=== PATIENT | female | born 1950 | race Caucasian/White ===

== ENCOUNTER → 2019-09-25 13:02 | Outpatient (BNVA) | payer MEDICARE, SELFPAY | PROVIDERS: Family Provider Family Medicine; PCP Family Medicine; Referring Provider Family Medicine; Visit Provider Family Medicine | DX: R05 Cough (principal); K44.9 Diaphragmatic hernia without obstruction or gangrene | CPT/HCPCS: 71046; 87804 ==

== ENCOUNTER 2020-02-16 19:56 | Emergency (ER) | payer MEDICARE, SELFPAY ==
[2020-02-16 20:14] VITALS: BP 131/64; PULSE 70; RESP 16; TEMP 36.7; O2SAT 94; BMI 26.9
--- NOTE | 2020-02-16 21:00 | ED_ITS ---
HPI - Abdominal Pain General: Chief Complaint: Abdominal Pain Stated Complaint: ruq abd pain radiates to back Time Seen by Provider: 02/16/20 20:58 History of Present Illness: HPI narrative: Patient is a 69-year-old female comes to the ED with epigastric pain. She has a past medical history of cholecystectomy, GERD and a hiatal hernia.. Patient says pain started about 3 weeks ago has progressed and gotten more severe. Pain is located in the epigastric region and in the right upper quadrant region. Patient also says that pain radiates to the middle of the back. Current pain is rated 9 out of 10. She has had nausea and approximately 2-3 episodes of emesis. Food and drink, especially meats make symptoms worse. Patient says she has been able to keep some foods down. Patient is also had some diarrhea as well over the past week. Patient says she takes omeprazole and has doubled her dose and also taken Tums to try to help with epigastric pain and nothing has helped. Patient also says she has had multiple episodes of liquid stool over the past several days. Patient also says she has been taking a lot of ibuprofen lately to help with pain. Denies any blood in the stool, blood in vomit, dysuria, hematuria, constipation, fevers and chest pain. Associated Symptoms: Reports bloating, diarrhea (Liquid watery stool), nausea and vomiting; Denies belching (Patient says she usually is able to belch and that brings her some relief but currently she can even belch), chills, constipation, dysuria, fever(s), hematochezia and hematuria Review of Systems Const: Reports: change in appetite (decrease); Denies: fever(s), chills or fatigue Eyes: Denies: change in vision or eye discomfort ENMT: Denies: throat pain, odynophagia, nasal discharge or nasal congestion Card: Denies: chest pain, palpitations, edema, swelling of feet/ankles, dyspnea on exertion or orthopnea Resp: Denies: dyspnea, productive cough or non-productive cough GI: Reports: abdominal pain, nausea, vomiting, diarrhea (Liquid watery stool) and bloating; Denies: constipation, belching (Patient says she usually is able to belch and that brings her some relief but currently she can even belch) or hematochezia : Denies: flank pain, dysuria or hematuria Musc: Denies: neck pain, back pain or extremity swelling Skin/Breast: Denies: rash or new lesions Neuro: Denies: headache(s), numbness in extremities or weakness in extremities PFSH ED PFSH: Family History Grandmother Breast cancer Paternal Skin cancer Paternal Heart disease Paternal Diabetes Paternal Grandfather No problems noted. Unknown No problems noted. Social History Smoking and tobacco status: never smoked Alcohol intake: never Female Reproductive History: Para: 3 Physical Exam Const: COMMON NORMALS: patient oriented x3 and alert GENERAL APPEARANCE: cooperative; not comfortable (uncomfortable and in pain) HENMT: COMMON NORMALS: normocephalic HEAD & SCALP: normocephalic MOUTH: Normal oral and palatal mucosa present THROAT: posterior oropharynx normal and uvula midline Eye: COMMON NORMALS: Equal, round and reactive pupils present PUPIL: Yes Equal, round and reactive pupils present Neck/C-Spine: COMMON NORMALS: supple GENERAL: Yes normal visual inspection Resp: COMMON NORMALS: normal respiratory effort, No retractions, No use of accessory muscles and clear to auscultation bilaterally AUSCULTATION: clear to auscultation bilaterally Cardio: COMMON NORMALS: regular rate, regular rhythm, S1 normal heart sound present, S2 normal heart sound present, No gallops present (Cardio), No clicks present (Cardio), No murmurs present (Cardio) and Peripheral pulses 2+ throughout RATE: regular rate RHYTHM: regular rhythm HEART SOUNDS: S1 normal heart sound present and S2 normal heart sound present PERIPHERAL PULSES: Peripheral pulses 2+ throughout GI: COMMON NORMALS: Normal to inspection, nondistended, normoactive bowel sounds present, Soft to palpation and no masses INSPECTION: Yes central obesity AUSCULTATION: Yes normoactive bowel sounds PALPATION: Yes Soft to palpation and Yes Tenderness to palpation present (GI) Details: RUQ and other (epigastric moderate tenderness) : COMMON NORMALS: Yes no CVA tenderness BLADDER/KIDNEY EXAM: Yes no CVA tenderness Back/Pelvis: COMMON NORMALS: no CVA tenderness Extremity: COMMON NORMALS: normal to inspection and no pedal edema Neuro: COMMON NORMALS: patient oriented x3 SENSORIUM/ORIENTATION: Yes alert GAIT: Yes Normal gait present Skin: COMMON NORMALS: no rashes or lesions noted GENERAL SKIN EXAM: no rashes or lesions noted and dry skin Course Reevaluation(s): Reevaluation #1: Patient's pain and nausea was controlled with meds while here in the ED. She stated she is feeling better and would like to go home and rest. Vital Signs: Vital signs: Vital Signs Temperature 98.0 F 02/16/20 20:14 Pulse Rate 74 02/17/20 03:07 Respiratory Rate 16 02/17/20 03:07 Blood Pressure 125/79 02/17/20 03:07 Pulse Oximetry 93 02/17/20 03:07 MDM - Abdominal Pain MDM Narrative: Medical decision making narrative: Patient is a 69-year-old female comes to the ED with epigastric pain nausea, vomiting and diarrhea. White blood cell count 15.3 and lipase 88, H. pylori is negative. CT of the abdomen shows Distended stomach and slightly distended proximal small bowel. The pattern suggests gastroenteritis or proximal ileus rather than mechanical obstruction. Patient was given IV antibiotics while here on the ED. I spoke with patient and told her the 2 options of treatment. I told her we can do an NG tube here in the ED and have her admitted or she could go home on some nausea meds, pain meds, antibiotics and a clear liquid diet for the next 48 hours, then advance as tolerated. Patient would like to go home and try the clear liquid diet. She is given prescriptions for nausea med, antibiotic and hydrocodone. I told her she could come back in to the ED if symptoms worsen after discharge. Patient understood and agreed with plan. Lab Data: Attestation: I reviewed the patient's lab results. Labs: Lab Results 02/16/20 02/16/20 02/16/20 Range/Units 21:20 21:20 21:20 WBC 15.3 H (4.0-10.0) 10^3/ uL RBC 4.59 (4.1-5.3) 10^6/u L Hgb 14.4 (11.5-15.3) g/dL Hct 43.1 (37.0-47.0) % MCV 93.9 (81-99) fL MCH 31.4 (28.0-34.0) pg MCHC 33.4 (30.0-36.0) g/dL RDW 12.7 (12.1-15.1) % Plt Count 338 (130-400) 10^3/c mm MPV 9.8 (7.4-10.4) fL Neut % (Auto) 73.5 % Lymph % (Auto) 15.2 % Collier % (Auto) 4.5 % Eos % (Auto) 6.1 % Baso % (Auto) 0.3 % Neut # (Auto) 11.3 H (1.8-7.7) 10^3/u L Lymph # (Auto) 2.3 (0.8-4.8) 10^3/u L Collier # (Auto) 0.7 (0.2-0.9) 10^3/u L Eos # (Auto) 0.9 H (0.0-0.8) 10^3/u L Baso # (Auto) 0.0 (0.0-0.1) 10^3/u L Nucleated RBC % (a uto) 0 % Nucleated RBCs # 0.0 /100WBC Sodium 140 (136-145) mmol/L Potassium 3.9 (3.5-5.1) mmol/L Chloride 104 (98-107) mmol/L Carbon Dioxide 24 (22-29) mmol/L Anion Gap 15.9 (5-19) BUN 21 (8-23) mg/dL Creatinine 0.8 (0.5-0.9) mg/dL GFR Calculation 71.1 L (90-130) mL/min Glucose 115 (65-115) mg/dL Calculated Osmolal ity 288 (285-295) mOsm/k g Calcium 8.9 (8.5-10.5) mg/dL Total Bilirubin 0.3 (0.15-1.2) mg/dL AST 61 H (0-32) U/L ALT 37 H (0-33) U/L Alkaline Phosphata se 144 H (35-105) IU/L Total Protein 6.1 L (6.6-8.7) g/dL Albumin 3.7 (3.5-5.2) g/dL Globulin 2.4 (1.3-4.6) g/dL Lipase 88 H (13-60) U/L H. pylori IgG Anti body Negative (Negative) Imaging Data ^: CT Abd/Pel: Attestation: I personally reviewed and interpreted this imaging study as follows: Radiologist's impression: [address] [address] [address] Scan Report Signed Patient: Diana Hines Unit #: [id number] : 1950 Age/Sex: 69 / F ADM Date: 02/16/20 Loc: ER Room/Bed: Attending Dr: Ordering Provider/Ordering MD: José Miguel Barrientos Date of Service: 02/16/20 Procedure(s): CT abdomen pelvis w con* [id number] Accession Number(s): [id number] Report Number: [id number] PROCEDURE INFORMATION: Exam: CT Abdomen And Pelvis With Contrast Exam date and time: 02/16/2020 10:19 PM Age: 69 years old Clinical indication: Abdominal pain; Prior surgery; Surgery date: 6+ months; Surgery type: Gb, bladder; Patient HX: C/O epigastric pain w n/v; Additional info: Abdom pain epigastric, ruq, n/v/d TECHNIQUE: Imaging protocol: Computed tomography of the abdomen and pelvis with intravenous contrast. Radiation optimization: All CT scans at this facility use at least one of these dose optimization techniques: automated exposure control; mA and/or kV adjustment per patient size (includes targeted exams where dose is matched to clinical indication); or iterative reconstruction. Contrast material: OMNI 300; Contrast volume: 95 ml; Contrast route: INTRAVENOUS (IV); COMPARISON: No relevant prior studies available. RADIATION DOSE METRICS: Total DLP (mGy-cm): 778.34 FINDINGS: Lungs: Bibasilar dependent atelectasis. Liver: Normal. No mass. Gallbladder and bile ducts: The gallbladder is surgically absent. Pancreas: Normal. No ductal dilation. Spleen: Normal. No splenomegaly. Adrenals: Normal. No mass. Kidneys and ureters: Normal. No hydronephrosis. Stomach and bowel: The stomach is distended with fluid with reflux into the esophagus. A 2 cm duodenal diverticulum is not inflamed. Scattered distal colonic diverticula are not inflamed. Slightly enlarged proximal small bowel without transition zone or wall thickening. Appendix: No evidence of appendicitis. Intraperitoneal space: Unremarkable. No free air. No significant fluid collection. Vasculature: Unremarkable. No abdominal aortic aneurysm. Lymph nodes: Unremarkable. No enlarged lymph nodes. Bladder: Unremarkable as visualized. Reproductive: The uterus is surgically absent. Bones/joints: There is a curvilinear scar like density in the right posterior pelvis extending towards the sacrum. No abnormal gas or fluid collection. Soft tissues: Unremarkable. CT/CT abdomen pelvis w con* [id number] IMPRESSION: 1. Distended stomach and slightly distended proximal small bowel. The pattern suggests gastroenteritis or proximal ileus rather than mechanical obstruction. 2. Colonic diverticulosis. 3. Other chronic and incidental findings as described. Radiation Dose CTDIVOL = (mGy): DLP = 778.34 (mGy-cm) Dictated By: Morales Thompson MD Signed By: Morales Thompson MD Signed Date/Time: 02/16/202351 DD/ 50 Discharge Plan Discharge Patient Disposition: Home, Self-Care Clinical Impression: Gastroenteritis Condition: Stable Prescriptions: New metoclopramide HCl 10 mg tablet 10 mg PO Q6H PRN (Reason: nausea and vomiting) Qty: 30 RF: 0 cefixime 400 mg capsule 400 mg PO BID 5 Days Qty: 10 RF: 0 No Action omeprazole 20 mg tablet,delayed release (DR/EC) 20 mg PO BID RF: 0 naproxen [Naprosyn] 500 mg tablet 500 mg PO BID PRNRF: 0 docusate sodium [Colace] 100 mg capsule 100 mg PO DAILY RF: 0 psyllium husk [Daily Fiber] 0.52 gram capsule 1.04 gm PO DAILY RF: 0 calcium carbonate 500 mg calcium (1,250 mg) tablet,chewable 500 mg PO TID PRNRF: 0 Adult 50 Plus Probiotic 4 billion cell capsule 4,000 mmu cells PO DAILY RF: 0 vitamin A palmitate 10,000 unit capsule PO DAILY RF: 0 thiamine HCl (vitamin B1) [Vitamin B-1] 250 mg tablet 250 mg PO DAILY RF: 0 ascorbate calcium (vitamin C) 500 mg tablet 1 gm PO DAILY RF: 0 glucosamine-chondroitin 750-600 mg tablet,chewable 1 tab PO BID RF: 0 vitamin E acetate 200 unit capsule PO RF: 0 omega-3 fatty acids 1,000 mg capsule 1,000 mg PO BID RF: 0 guaifenesin [Mucus Relief] 200 mg tablet 400 mg PO Q4H PRNRF: 0 Sinus Congestion-Pain(guaif) 5-325-200 mg tablet 2 tab PO Q6H PRNRF: 0 multivitamin Capsule 1 cap PO QAM RF: 0 dkqhgnjfo-YA-FK-acetaminophen Capsule PO PRNRF: 0 cholecalciferol (vitamin D3) 125 mcg (5,000 unit) capsule 5,000 unit PO DAILY RF: 0 ferrous sulfate [iron] 325 mg (65 mg iron) tablet 325 mg PO QDAY RF: 0 albuterol sulfate 2.5 mg /3 mL (0.083 %) solution for nebulization 2.5 mg INHALATION Q6H PRN (Reason: shortness of breath or wheezing) Qty: 75 RF: 0 albuterol sulfate 90 mcg/actuation HFA aerosol inhaler 1 inh INHALATION QID PRN (Reason: shortness of breath or wheezing) Qty: 18 RF: 0 sodium chloride [[place] Nasal] 0.65 % aerosol,spray 1 spray INTRANASAL BID PRN (Reason: dry nasal passages) Qty: 60 RF: 0 fluticasone propionate [Flonase Allergy Relief] 50 mcg/actuation spray,suspension 1 spray INTRANASAL BID Qty: 36.4 RF: 0 oxybutynin chloride 15 mg tablet extended release 24hr 15 mg PO DAILY 30 Days Qty: 30 RF: 8 Discharge Orders: Discharge Order (Routine); Ordered 02/17/20 Ordered By: José Miguel Barrientos Discharge Diet: Advance as tolerated and Clear Liquid Discharge Activity: Increase activity as tolerated Patient Instructions: Full Liquid Diet, Clear Liquid Diet (ED), Gastroenteritis (ED) Activity Restrictions/Additional Instructions: Contact your PCP and schedule an appointment for reevaluation in the next 7 to 10 days. Clear liquid diet only for the next 48 hours then after that you can slowly advance as tolerated. Take the prescribed metoclopramide for nausea. Take full course of antibiotic as prescribed. I am also sending you home with a written prescription for hydrocodone for pain. Continue all other home meds. Remember you can return to ED for reevaluation if symptoms worsen. Discharge Date/Time: 02/17/20 03:24 Coding Level of Care Code ED Manager Mental Health for [facility] Fwd Exam Comprehensive
[2020-02-16 21:31] LABS: Basophils % 0.3 %; Eosinophils # 0.9 10^3/uL (0.0-0.8); Eosinophils % 6.1 %; Hematocrit 43.1 % (37.0-47.0); Hemoglobin 14.4 g/dL (11.5-15.3); Lymphocytes # 2.3 10^3/uL (0.8-4.8); Lymphocytes % 15.2 %; Mean Corpuscular HGB Conc 33.4 g/dL (30.0-36.0); Mean Corpuscular Hemoglobin 31.4 pg (28.0-34.0); Mean Corpuscular Volume 93.9 fL (81-99); Mean Platelet Volume 9.8 fL (7.4-10.4); Monocytes # 0.7 10^3/uL (0.2-0.9); Monocytes % 4.5 %; Neutrophils # 11.3 10^3/uL (1.8-7.7); Neutrophils % 73.5 %; Nucleated Red Blood Cells % 0 %; Platelet Count 338 10^3/cmm (130-400); Red Blood Count 4.59 10^6/uL (4.1-5.3); Red Cell Distribution Width 12.7 % (12.1-15.1); White Blood Count 15.3 10^3/uL (4.0-10.0)
[2020-02-16 21:46] LABS: Alanine Aminotransferase 37 U/L (0-33); Albumin Level 3.7 g/dL (3.5-5.2); Alkaline Phosphatase 144 IU/L (35-105); Anion Gap 15.9 (5-19); Aspartate Amino Transferase 61 U/L (0-32); Blood Urea Nitrogen 21 mg/dL (8-23); Calcium 8.9 mg/dL (8.5-10.5); Carbon Dioxide 24 mmol/L (22-29); Chloride 104 mmol/L (98-107); Globulin 2.4 g/dL (1.3-4.6); Glomerular Filtration Rate 71.1 mL/min (90-130); Glucose 115 mg/dL (65-115); Lipase 88 U/L (13-60); Osmolality Calculated 288 mOsm/kg (285-295); Potassium 3.9 mmol/L (3.5-5.1); Sodium 140 mmol/L (136-145); Total Bilirubin 0.3 mg/dL (0.15-1.2); Total Protein 6.1 g/dL (6.6-8.7)
--- NOTE | 2020-02-16 21:54 | CTR_ITS ---
PROCEDURE INFORMATION: Exam: CT Abdomen And Pelvis With Contrast Exam date and time: 02/16/2020 10:19 PM Age: 69 years old Clinical indication: Abdominal pain; Prior surgery; Surgery date: 6+ months; Surgery type: Gb, bladder; Patient HX: C/O epigastric pain w n/v; Additional info: Abdom pain epigastric, ruq, n/v/d TECHNIQUE: Imaging protocol: Computed tomography of the abdomen and pelvis with intravenous contrast. Radiation optimization: All CT scans at this facility use at least one of these dose optimization techniques: automated exposure control; mA and/or kV adjustment per patient size (includes targeted exams where dose is matched to clinical indication); or iterative reconstruction. Contrast material: OMNI 300; Contrast volume: 95 ml; Contrast route: INTRAVENOUS (IV); COMPARISON: No relevant prior studies available. RADIATION DOSE METRICS: Total DLP (mGy-cm): 778.34 FINDINGS: Lungs: Bibasilar dependent atelectasis. Liver: Normal. No mass. Gallbladder and bile ducts: The gallbladder is surgically absent. Pancreas: Normal. No ductal dilation. Spleen: Normal. No splenomegaly. Adrenals: Normal. No mass. Kidneys and ureters: Normal. No hydronephrosis. Stomach and bowel: The stomach is distended with fluid with reflux into the esophagus. A 2 cm duodenal diverticulum is not inflamed. Scattered distal colonic diverticula are not inflamed. Slightly enlarged proximal small bowel without transition zone or wall thickening. Appendix: No evidence of appendicitis. Intraperitoneal space: Unremarkable. No free air. No significant fluid collection. Vasculature: Unremarkable. No abdominal aortic aneurysm. Lymph nodes: Unremarkable. No enlarged lymph nodes. Bladder: Unremarkable as visualized. Reproductive: The uterus is surgically absent. Bones/joints: There is a curvilinear scar like density in the right posterior pelvis extending towards the sacrum. No abnormal gas or fluid collection. Soft tissues: Unremarkable. CT/CT abdomen pelvis w con* [id number] IMPRESSION: 1. Distended stomach and slightly distended proximal small bowel. The pattern suggests gastroenteritis or proximal ileus rather than mechanical obstruction. 2. Colonic diverticulosis. 3. Other chronic and incidental findings as described. Radiation Dose CTDIVOL = (mGy): DLP = 778.34 (mGy-cm)
[2020-02-16 22:19] LABS: H. Pylori IgG Antibody Negative (Negative)
[2020-02-16 22:28] VITALS: RESP 16
[2020-02-16] MEDS: ondansetron 2 mg/ML SDV 2 mL 4 MG IVP (22:28)
[2020-02-16] MEDS: morphine 4 mg/mL SDV 1 mL IVP (22:28)
[2020-02-16] MEDS: diphenhydrAMINE 50 mg/mL SDV 1mL 25 MG IVP (22:38)
[2020-02-16 22:45] VITALS: BP 111/64; PULSE 73; RESP 16; O2SAT 88
--- NOTE | 2020-02-16 22:50 | PC.NURSE ---
after giving the pt. 4mg of zofran, she suddenly c/o a sever headach and i found she had re streaks going up her arm where the med had been but in the IV. the PA was informed and orders were received for Benadryl
[2020-02-16] MEDS: iohexol 300 mg/mL 100 mL Btl IV (23:26)
[2020-02-17] MEDS: ciprofloxacin 200 MG/100 ML PREMIX 100 MG IV (01:19)
[2020-02-17] MEDS: metroNIDAZOLE IV 500 MG/100 ML PREMIX 100 MG IV (01:51)
[2020-02-17 02:05] VITALS: BP 116/59; PULSE 78; RESP 19; O2SAT 100
[2020-02-17 02:54] VITALS: RESP 18
[2020-02-17] MEDS: morphine 4 mg/mL SDV 1 mL IVP (02:54)
[2020-02-17] MEDS: metoclopramide 5 mg/mL SDV 2 mL 10 MG IVP (02:54)
[2020-02-17 03:07] VITALS: BP 125/79; PULSE 74; RESP 16; O2SAT 93
== END 2020-02-17 03:24 | disposition home or self-care (01) ==
PROVIDERS: Emergency Provider Physician Assistant
DX: K52.9 Noninfective gastroenteritis and colitis, unspecified (principal)
CPT/HCPCS: 12345; 74177; 80053; 83690; 85025; 86677; 96365; 96367; 96375; 96376; 99283; J0744; J1200; J2270; J2405; J2765; J7030; Q9967; S0030

== ENCOUNTER → 2020-04-07 09:20 | Outpatient (BNVA) | payer MEDICARE, SELFPAY | PROVIDERS: Visit Provider Family Medicine | DX: Z13.6 Encounter for screening for cardiovascular disorders (principal); K21.9 Gastro-esophageal reflux disease without esophagitis | CPT/HCPCS: 80053; 80061; 85025 ==

== ENCOUNTER 2020-04-15 08:31 | Day surgery (SDC) | payer MEDICARE, SELFPAY ==
[2020-04-13 12:13] VITALS: BMI 27.1
[2020-04-15] MEDS: sodium chloride 0.9% 1,000 ML 30 ML IV (09:10)
--- NOTE | 2020-04-15 09:18 | ANES.PREANE2 ---
Pre-Anesthetic Assessment Pre-Anesthetic Assessment: Height/Weight: Height 1.57 m Weight 67.132 kg Preop Diagnosis: Screening colonoscopy Proposed Procedure: Operation Date: 04/15/20 09:15 Proposed Procedures p Colonoscopy 10219 Z12.11(Not Applicable) - Tato Nettles MD Was Beta Christie taken within 24 hours: N/A Last intake: Intake Last Liquid Date 04/14/20 Last Liquid Time 20:00 Last Solid Date 04/13/20 Last Solid Time 18:00 Last Intake: 20:00 Social: Social History: No alcohol and No tobacco Exam: Pre-Anes Outpt Exam: alert, oriented x 3, clear to auscultation bilaterally and regular rate & rhythm Airway: Submandibular: WNL Cervical ROM: WNL MP: 2 Dentition: Full Pulmonary: Pulmonary: COPD, Cough and BRADLEY CV/HEM: CV/HEM: Anemia : : None reported Hepatic: Hepatic: None reported GI: GI: GERD and Hiatus hernia Metabolic: Metabolic: None reported Musc/skel: Musc/skel: None reported Neuropsych: Neuropsych: None reported Anesthetic Plan: ASA status: 2 Anesthesia: Anesthesia Evaluation and MAC Risk of > 500 ml blood loss (7ml/kg in children): No PFSH Anesthesia PFSH: Medical History (Updated 04/07/20 @ 09:04 by Valeri Cerrato DO) GERD (gastroesophageal reflux disease) Incontinence in female POP-Q stage 2 cystocele Patient was counseled again regarding cystocele. A cystocele, also called a prolapsed bladder, is when your bladder shifts and pushes on the outside wall of your vagina. This happens when the muscles between your bladder and vagina weaken and loosen. A cystocele can be caused by: Aging, Vaginal deliveries of heavy babies, Menopause, Obesity, Frequent straining during bowel movements, Heavy lifting, a hysterectomy or other gynecologic surgery. In her case this most likely recurred due to heavy lifting. Urgency of micturition Patient was counseled regarding overactive bladder, and to initially rule out UTI. She was referred to pelvic floor therapy for pelvic floor muscle exercises, she was also counseled regarding all her conservative medical management measures like weight loss, scheduled trips to the toilet, bladder training, wearing pads. She was also counseled regarding medication trial with oxybutynin was prescribed. Follow-up in one month. Vaginal atrophy Surgical History History of bladder surgery 09/19/18--Bladder sling placed History of cholecystectomy History of hysterectomy 09/19/18 Family History Grandmother Breast cancer Paternal Skin cancer Paternal Heart disease Paternal Diabetes Paternal Grandfather No problems noted. Unknown No problems noted. Social History Smoking and tobacco status: never smoked Alcohol intake: never Female Reproductive History: Para: 3 Data Anesthesia Cardiac Studies: No Data to Display
--- NOTE | 2020-04-15 09:27 | W.PM.OPSUD ---
Surgery/Procedure H&P Update DATE OF PROCEDURE: April 15, 2020 DATE H&P PERFORMED: 03/19/20 H&P UPDATE INFORMATION: I have reviewed H&P completed within last 30 days, I have examined patient prior to procedure and No changes to prior documentation PREOP DIAGNOSIS: Screening colonoscopy PRIMARY INDICATION FOR PROCEDURE: The same PLANNED PROCEDURE: Operation Date: 04/15/20 09:15 Proposed Procedures p Colonoscopy 15044 Z12.11(Not Applicable) - Tato Nettles MD
[2020-04-15 10:06] VITALS: BP 109/60; PULSE 62; RESP 18; TEMP 36.1; O2SAT 98
--- NOTE | 2020-04-15 10:11 | ANE.PACU2 ---
Inpatient post-anesthesia follow up: Airway intact: Yes Vital signs: Temperature Pulse Rate Respiratory Rate Blood Pressure Pulse Oximetry Oxygen Delivery Me thod Oxygen Flow Rate Fraction of Inspir ed Oxygen Hydration adequate: Yes Nausea and vomiting: No Pain level: 1 Mental status: Baseline
--- NOTE | 2020-04-15 10:13 | FL_ITS ---
WS: [id number] EXAM: SINGLE COLUMN BARIUM ENEMA DATE OF EXAMINATION: 04/15/2020, 1057 hours COMPARISON: None. HISTORY: Patient is 69 years old with incomplete colonoscopy. Patient with upper abdominal and sternal pain. FINDINGS: Gang Drill Operator radiograph shows an extensive amount of air throughout the colon correlating with recent colono scopy. Single column barium minimal was performed in routine fashion. Few scattered diverticuli are s een in the sigmoid colon region. The remainder of the colon is otherwise unremarkable. The cecum appe ars to be on a lax mesentery and is located actually within the mid abdomen. Air and barium extend re trograde into decompressed normal-appearing distal small bowel. No stricture or mass lesion is seen. Postevacuation imaging shows a fairly extensive amount of residual barium. No stricture, obstruction or mass lesion identified. FL/FL barium enema [id number] IMPRESSION: Mild sigmoid colon diverticulosis. No findings of diverticulitis. Remainder of the colon evaluation is otherwise unremarkable.
[2020-04-15 10:25] VITALS: BP 98/61; PULSE 64; RESP 18; O2SAT 100
== END 2020-04-15 10:37 | disposition home or self-care (01) ==
PROVIDERS: PCP Family Medicine; Visit Provider Surgery
PROC: 0DJD8ZZ Inspection of Lower Intestinal Tract, Via Natural or Artificial Opening Endoscopic (ICD-10-PCS; CPT 45378; principal; 2020-04-15 09:15)
DX: Z12.11 Encounter for screening for malignant neoplasm of colon (principal); K57.30 Diverticulosis of large intestine without perforation or abscess without bleeding; J44.9 Chronic obstructive pulmonary disease, unspecified; D64.9 Anemia, unspecified
CPT/HCPCS: 12345; 45330; 74270; J2704; J7030

== ENCOUNTER 2020-05-14 08:59 | Outpatient (CLI) | payer MEDICARE, SELFPAY ==
--- NOTE | 2020-05-14 09:15 | FL_ITS ---
WS: [id number] UPPER GI WITH SMALL BOWEL FOLLOW-THROUGH HISTORY: R10.13 Epigastric pain COMPARISON: 01/15/2019 FLUOROSCOPIC TIME: 4.1 minutes. Double contrast upper GI examination was performed. Patient swallowed the barium mixture without difficulty. Large hiatal hernia was intermittently visualized on this examination. There is also delayed emptying of the esophagus due to mild tertiary contractions. Marked tortuosity and dilatation of the esophagu s. Gastroesophageal reflux was noted to the level just above the yenni. No ulcer. Small bowel follow-through. Barium transited the small bowel at minutes. No small bowel strictures or dilatation. No mass or obst ruction. Two adjacent diverticulum noted in the third portion of the duodenum. Normal appearance of t he right lower quadrant. Prior cholecystectomy. Mild LEFT convex curvature lumbar spine with osteopenia. FL/FL upperGI air smallbowel ser* IMPRESSION: 1. Large intermittent hiatal hernia. 2. Gastroesophageal reflux to the level of the yenni. 3. Duodenal diverticula. 4. Dilated tortuous esophagus with dysmotility. 5. Unremarkable small bowel follow-through.
== END 2020-05-14 09:00 | disposition home or self-care (01) ==
LOC: RAD 09:05
PROVIDERS: PCP Family Medicine; Visit Provider Surgery
DX: R10.13 Epigastric pain (principal); K44.9 Diaphragmatic hernia without obstruction or gangrene; K21.9 Gastro-esophageal reflux disease without esophagitis; K57.10 Diverticulosis of small intestine without perforation or abscess without bleeding
CPT/HCPCS: 74246; 74248

== ENCOUNTER → 2021-05-13 10:00 | Outpatient (BNVA) | payer MEDICARE, SELFPAY | PROVIDERS: PCP Family Medicine; Visit Provider Family Medicine | DX: Z13.6 Encounter for screening for cardiovascular disorders (principal); K21.9 Gastro-esophageal reflux disease without esophagitis | CPT/HCPCS: 85025 ==

== ENCOUNTER → 2021-05-19 11:07 | Outpatient (BNVA) | payer MEDICARE, SELFPAY | PROVIDERS: PCP Family Medicine; Visit Provider Family Medicine | DX: Z13.6 Encounter for screening for cardiovascular disorders (principal) | CPT/HCPCS: 80053; 80061; 85025 ==

== ENCOUNTER 2021-05-31 14:20 | Outpatient (CLI) | payer MEDICARE, SELFPAY ==
--- NOTE | 2021-05-31 14:30 | MM_ITS ---
WS: [id number] BILATERAL SCREENING DIGITAL MAMMOGRAM WITH CAD HISTORY: screening mammogram COMPARISON: 08/11/2016 and 07/27/2007 Bilateral CC and MLO views submitted. Computer aided detection analyzed. Breast composition: There are scattered areas of fibroglandular density. No suspicious masses, microc alcifications or architectural distortion. Focal area of asymmetry in the upper outer quadrant of the RIGHT breast has been stable over multiple prior examinations. MM/[place] [id number] IMPRESSION: BI-RADS: 2-Benign FOLLOW UP: 1 Year Follow-up
== END 2021-05-31 14:21 | disposition home or self-care (01) ==
LOC: RADSHAW 14:26
PROVIDERS: PCP Family Medicine; Visit Provider Family Medicine
DX: Z12.31 Encounter for screening mammogram for malignant neoplasm of breast (principal)
CPT/HCPCS: 77067

== ENCOUNTER → 2021-12-27 14:57 | Outpatient (BNVA) | payer MEDICARE, SELFPAY | PROVIDERS: PCP Family Medicine; Visit Provider Family Medicine | DX: R53.83 Other fatigue (principal) | CPT/HCPCS: 82607; 84443; 85025 ==

== ENCOUNTER 2022-08-17 22:52 | Emergency (ER) | payer MEDICARE, SELFPAY ==
[2022-08-17 23:01] VITALS: BP 153/90; PULSE 77; RESP 20; TEMP 36.8; O2SAT 95; BMI 27.4
--- NOTE | 2022-08-17 23:11 | W.ED.NAVMDI ---
HPI - Nausea/Vomiting/Diarrhea General: Chief complaint: Nausea/Vomiting/Diarrhea Stated complaint: Headache\V\ABD Pain\ Time Seen by Provider: 08/17/22 22:56 Source: patient Mode of arrival: ambulatory Limitations: no limitations History of Present Illness: 72-year-old female who states that over the last day patient has been having nausea vomiting diarrhea along with abdominal cramping. She states she had multiple episodes of vomiting not been able to tolerate any p.o. and feels dehydrated. She had a mild headache after vomiting as well. Denies any chest pain denies any fevers denies any known sick contacts. Associated nausea: Yes Associated symtoms: Reports nausea; Denies chest pain, dysuria or headache(s) Review of Systems Const: Denies: fever(s), chills, body aches or change in appetite Eyes: Denies: blurry vision or eye discomfort ENMT: Denies: throat pain or dental pain Card: Denies: chest pain Resp: Denies: dyspnea GI: Reports: abdominal pain, nausea and vomiting; Denies: diarrhea : Denies: dysuria Musc: Denies: neck pain or back pain Skin/Breast: Denies: rash Neuro: Denies: headache(s) Psych: Denies: depression Alexandre/Lymph: Denies: easy bruising All/Imm: Denies: urticaria PFSH ED PFSH: Medical History GERD (gastroesophageal reflux disease) Incontinence in female POP-Q stage 2 cystocele Patient was counseled again regarding cystocele. A cystocele, also called a prolapsed bladder, is when your bladder shifts and pushes on the outside wall of your vagina. This happens when the muscles between your bladder and vagina weaken and loosen. A cystocele can be caused by: Aging, Vaginal deliveries of heavy babies, Menopause, Obesity, Frequent straining during bowel movements, Heavy lifting, a hysterectomy or other gynecologic surgery. In her case this most likely recurred due to heavy lifting. Urgency of micturition Patient was counseled regarding overactive bladder, and to initially rule out UTI. She was referred to pelvic floor therapy for pelvic floor muscle exercises, she was also counseled regarding all her conservative medical management measures like weight loss, scheduled trips to the toilet, bladder training, wearing pads. She was also counseled regarding medication trial with oxybutynin was prescribed. Follow-up in one month. Vaginal atrophy Surgical History History of bladder surgery 09/19/18--Bladder sling placed History of cholecystectomy History of hysterectomy 09/19/18 Hx of cataract surgery Family History Grandmother Breast cancer, Onset Age: 86 Paternal Skin cancer Paternal Heart disease Paternal Diabetes Paternal Grandfather No problems noted. Unknown No problems noted. Brother Heart disease Denies family history of Colon cancer Ovarian cancer Clotting disorder Hyperlipidemia Anesthesia complication Bleeding disorder Hypertension Uterine cancer Stroke Social History Smoking and tobacco status: never smoked Alcohol intake: never Female Reproductive History: Para: 3 Physical Exam Const: COMMON NORMALS: no acute distress, patient oriented x3 and healthy appearing HENMT: COMMON NORMALS: normocephalic and atraumatic HEAD & SCALP: normocephalic and atraumatic Eye: COMMON NORMALS: Equal, round and reactive pupils present and EOMs intact bilaterally PUPIL: Yes Equal, round and reactive pupils present Neck/C-Spine: COMMON NORMALS: full ROM and supple Chest: COMMONS NORMALS: normal inspection of the chest and normal palpation of entire chest wall Resp: COMMON NORMALS: normal respiratory effort, No retractions, No use of accessory muscles and clear to auscultation bilaterally AUSCULTATION: clear to auscultation bilaterally Cardio: COMMON NORMALS: regular rate, regular rhythm and No murmurs present (Cardio) RATE: regular rate RHYTHM: regular rhythm GI: COMMON NORMALS: Normal to inspection, nondistended, normoactive bowel sounds present, Soft to palpation, non-tender and no masses PALPATION: Yes Soft to palpation Extremity: COMMON NORMALS: normal to inspection and full ROM Neuro: COMMON NORMALS: patient oriented x3, moves all extremities and no focal motor deficits Psych: COMMON NORMALS: mental status grossly normal, Normal thought process present and cooperative THOUGHT PROCESS: Normal thought process present Skin: COMMON NORMALS: no rashes or lesions noted and no wounds GENERAL SKIN EXAM: no rashes or lesions noted Course Vital Signs: Vital signs: Vital Signs Temperature 98.2 F 08/17/22 23:01 Pulse Rate 77 08/17/22 23:01 Respiratory Rate 18 08/18/22 00:03 Blood Pressure 153/90 08/17/22 23:01 Pulse Oximetry 95 08/17/22 23:01 Oxygen Delivery Me thod 08/17/22 23:01 MDM - Nausea/Vomiting/Diarrhea Medical Decision Making Patient presents with nausea vomiting diarrhea is likely viral in origin she feels much improved after Phenergan she is able tolerate p.o. blood works normal she is stable for discharge she is to follow-up with PCP and return if worsening. Lab Data 08/17/22 23:00 08/17/22 23:00 Laboratory Results WBC 3.9 10^3/uL (4.0-10.0) L 08/17/22 23:00 RBC 4.63 10^6/uL (4.1-5.3) 08/17/22 23:00 Hgb 14.5 g/dL (11.5-15.3) 08/17/22 23:00 Hct 43.2 % (37.0-47.0) 08/17/22 23:00 MCV 93.3 fl (81-99) 08/17/22 23:00 MCH 31.3 pg (28.0-34.0) 08/17/22 23:00 MCHC 33.6 g/dL (30.0-36.0) 08/17/22 23:00 RDW 13.0 % (12.1-15.1) 08/17/22 23:00 Plt Count 260 10^3/cmm (130-400) 08/17/22 23:00 MPV 10.2 fL (7.4-10.4) 08/17/22 23:00 Neut % (Auto) 72.0 % 08/17/22 23:00 Lymph % (Auto) 15.6 % 08/17/22 23:00 [place] % (Auto) 9.1 % 08/17/22 23:00 Eos % (Auto) 0.0 % 08/17/22 23:00 Baso % (Auto) 1.0 % 08/17/22 23:00 Neut # (Auto) 2.77 10^3/uL (1.8-7.7) 08/17/22 23:00 Lymph # (Auto) 0.6 10^3/uL (0.8-4.8) L 08/17/22 23:00 [place] # (Auto) 0.4 10^3/uL (0.2-0.9) 08/17/22 23:00 Eos # (Auto) 0.0 10^3/uL (0.0-0.8) 08/17/22 23:00 Baso # (Auto) 0.0 10^3/uL (0.0-0.1) 08/17/22 23:00 Nucleated RBC % (auto) 0 % 08/17/22 23:00 Nucleated RBCs # 0.0 /100WBC 08/17/22 23:00 Sodium 137 mmol/L (136-145) 08/17/22 23:00 Potassium 3.9 mmol/L (3.5-5.1) 08/17/22 23:00 Chloride 104 mmol/L (98-107) 08/17/22 23:00 Carbon Dioxide 21 mmol/L (22-29) L 08/17/22 23:00 Anion Gap 15.9 (5-19) 08/17/22 23:00 BUN 6 mg/dL (8-23) L 08/17/22 23:00 Creatinine 0.7 mg/dL (0.5-0.9) 08/17/22 23:00 GFR Calculation Not Reportable 08/17/22 23:00 Glucose 117 mg/dL (65-115) H 08/17/22 23:00 Calculated Osmolality 283 mOsm/kg (285-295) L 08/17/22 23:00 Calcium 9.3 mg/dL (8.5-10.5) 08/17/22 23:00 Total Bilirubin 0.4 mg/dL (0.15-1.2) 08/17/22 23:00 AST 30 U/L (0-32) 08/17/22 23:00 ALT 37 U/L (0-33) H 08/17/22 23:00 Alkaline Phosphatase 127 U/L (35-105) H 08/17/22 23:00 Total Protein 6.9 g/dL (6.6-8.7) 08/17/22 23:00 Albumin 3.9 g/dL (3.5-5.2) 08/17/22 23:00 Globulin 3.0 g/dL (1.3-4.6) 08/17/22 23:00 Lipase 22 U/L (13-60) 08/17/22 23:00 Influenza Type A Ag negative (Negative) 08/18/22 00:09 Influenza Type B Ag negative (Negative) 08/18/22 00:09 Discharge Plan Discharge Patient Disposition: Home Clinical Impression: Vomiting Condition: Stable Prescriptions: New promethazine 12.5 mg tablet 12.5 mg PO Q6H PRN (Reason: nausea and vomiting) Qty: 14 0RF Rx Instructions: 3 doses during day; last dose no later than 4 hr before bedtime No Action docusate sodium [Colace] 100 mg capsule 100 mg PO DAILY psyllium husk [Daily Fiber] 0.52 gram capsule 1.04 gm PO DAILY Adult 50 Plus Probiotic 4 billion cell capsule 4,000 mmu cells PO DAILY thiamine HCl (vitamin B1) [Vitamin B-1] 250 mg tablet 250 mg PO DAILY vitamin E acetate 200 unit capsule 1 unit PO DAILY guaifenesin [Mucus Relief] 200 mg tablet 400 mg PO Q4H PRN (Reason: Congestion) calcium carbonate 500 mg calcium (1,250 mg) tablet,chewable 500 mg PO DAILY PRN (Reason: congestion) glucosamine-chondroitin 750-600 mg tablet,chewable 1 tab PO DAILY elderberry fruit 200 mg capsule PO coenzyme Q10 [Co Q-10] 10 mg capsule 10 mg PO DAILY sodium chloride [[place] Nasal] 0.65 % aerosol,spray 1 spray INTRANASAL BID PRN (Reason: dry nasal passages) Qty: 60 0RF albuterol sulfate 90 mcg/actuation HFA aerosol inhaler 1 inh INHALATION QID PRN (Reason: shortness of breath or wheezing) Qty: 18 0RF Rx Instructions: please run through 340b lansoprazole 15 mg capsule,delayed release(DR/EC) 15 mg PO .at bedtime Mucinex 1,200 mg tablet extended release 12hr 1,200 mg PO BID Qty: 20 0RF albuterol sulfate 2.5 mg /3 mL (0.083 %) solution for nebulization 2.5 mg INHALATION Q6H PRN (Reason: shortness of breath or wheezing) Qty: 180 1RF fluticasone propion-salmeterol [Advair Diskus] 250-50 mcg/dose blister with device 1 inh inhalation Q12H Qty: 60 5RF fluticasone propionate [Flonase Allergy Relief] 50 mcg/actuation spray,suspension 1 spray INTRANASAL BID Qty: 15.8 5RF Rx Instructions: administer into each nostril benzonatate 100 mg capsule See Rx Instructions .ROUTE .COMPLEX Qty: 30 0RF Dose Instruction: Take 1 capsule by mouth three times daily as needed for cough Rx Instructions: Take 1 capsule by mouth three times daily as needed for cough omeprazole 20 mg capsule,delayed release(DR/EC) 20 mg PO QAM 90 Days Qty: 90 0RF oxybutynin chloride 15 mg tablet extended release 24hr 15 mg PO DAILY 90 Days Qty: 90 2RF metoclopramide HCl 10 mg tablet 10 mg PO Q6H PRN (Reason: nausea and vomiting) Qty: 30 0RF Discharge Orders: Discharge ED (Routine); Ordered 08/18/22 Ordered By: Masoud Salas Referrals: Valeri Cerrato DO [Primary Care Provider] - 1-3 days Discharge Diet: Advance as tolerated Discharge Activity: Resume usual activity Patient Instructions: Acute Nausea and Vomiting (ED) Coding Level of Care Code ED [employer] for Chg Fwd Exam Comprehensive
[2022-08-17 23:15] LABS: Hematocrit 43.2 % (37.0-47.0); Hemoglobin 14.5 g/dL (11.5-15.3); Lymphocytes # 0.6 10^3/uL (0.8-4.8); Lymphocytes % 15.6 %; Mean Corpuscular HGB Conc 33.6 g/dL (30.0-36.0); Mean Corpuscular Hemoglobin 31.3 pg (28.0-34.0); Mean Corpuscular Volume 93.3 fl (81-99); Mean Platelet Volume 10.2 fL (7.4-10.4); Monocytes # 0.4 10^3/uL (0.2-0.9); Monocytes % 9.1 %; Neutrophils # 2.77 10^3/uL (1.8-7.7); Nucleated Red Blood Cells % 0 %; Platelet Count 260 10^3/cmm (130-400); Red Blood Count 4.63 10^6/uL (4.1-5.3); White Blood Count 3.9 10^3/uL (4.0-10.0)
[2022-08-17 23:35] LABS: Alanine Aminotransferase 37 U/L (0-33); Albumin Level 3.9 g/dL (3.5-5.2); Alkaline Phosphatase 127 U/L (35-105); Anion Gap 15.9 (5-19); Aspartate Amino Transferase 30 U/L (0-32); Blood Urea Nitrogen 6 mg/dL (8-23); Calcium 9.3 mg/dL (8.5-10.5); Carbon Dioxide 21 mmol/L (22-29); Chloride 104 mmol/L (98-107); Creatinine Clr Calc Pharmacy 57.4745; Glucose 117 mg/dL (65-115); Lipase 22 U/L (13-60); Osmolality Calculated 283 mOsm/kg (285-295); Potassium 3.9 mmol/L (3.5-5.1); Sodium 137 mmol/L (136-145); Total Bilirubin 0.4 mg/dL (0.15-1.2); Total Protein 6.9 g/dL (6.6-8.7)
[2022-08-18 00:03] VITALS: RESP 18
[2022-08-18] MEDS: morphine 4 mg/mL SDV 1 mL IVP (00:03)
[2022-08-18] MEDS: sodium chloride 0.9% 1,000 ML 999 ML IV (00:03)
[2022-08-18] MEDS: promethazine 25 mg/mL SDV 1 mL 6.25 MG IM (00:03)
[2022-08-18 00:37] LABS: Influenza A by IFA negative (Negative); Influenza B by IFA negative (Negative)
[2022-08-18] MEDS: sodium chloride 0.9% 500 ML 999 ML IV (01:21)
[2022-08-18 02:04] VITALS: BP 142/79; PULSE 80; RESP 18; O2SAT 94
== END 2022-08-18 02:05 | disposition home or self-care (01) ==
PROVIDERS: Emergency Provider Emergency Medicine; PCP Family Medicine
DX: R11.11 Vomiting without nausea (principal)
CPT/HCPCS: 80053; 83690; 85025; 87804; 96361; 96372; 96374; 99284; J2270; J2550; J7030; J7040

== ENCOUNTER → 2023-04-12 13:40 | Outpatient (BNVA) | payer MEDICARE, SELFPAY | PROVIDERS: PCP Family Medicine; Visit Provider Obstetrics & Gynecology | DX: R39.9 Unspecified symptoms and signs involving the genitourinary system (principal) | CPT/HCPCS: 87086 ==

== ENCOUNTER → 2023-07-27 12:56 | Outpatient (BNVA) | payer MEDICARE, SELFPAY | PROVIDERS: PCP Family Medicine; Visit Provider Family Medicine | DX: R05.9 Cough, unspecified (principal); R68.89 Other general symptoms and signs; R50.9 Fever, unspecified | CPT/HCPCS: 87400; 87426 ==

== ENCOUNTER → 2023-09-06 13:46 | Outpatient (BNVA) | payer MEDICARE, SELFPAY | PROVIDERS: PCP Family Medicine; Visit Provider Family Medicine | DX: Z13.6 Encounter for screening for cardiovascular disorders (principal); Z00.00 Encounter for general adult medical examination without abnormal findings; Z13.220 Encounter for screening for lipoid disorders | CPT/HCPCS: 80053; 80061; 85025 ==

== ENCOUNTER → 2023-10-30 15:03 | Outpatient (BNVA) | payer MEDICARE, SELFPAY | PROVIDERS: PCP Family Medicine; Visit Provider Family Medicine | DX: L65.9 Nonscarring hair loss, unspecified (principal) | CPT/HCPCS: 84443 ==

== ENCOUNTER → 2024-10-18 13:26 | Outpatient (BNVA) | payer MEDICARE, SELFPAY | PROVIDERS: PCP Family Medicine; Visit Provider Obstetrics & Gynecology | DX: R30.0 Dysuria (principal) | CPT/HCPCS: 81000 ==

== ENCOUNTER → 2024-10-29 12:25 | Outpatient (BNVA) | payer MEDICARE, SELFPAY | PROVIDERS: PCP Family Medicine; Visit Provider Obstetrics & Gynecology | DX: R10.2 Pelvic and perineal pain (principal); Z90.710 Acquired absence of both cervix and uterus | CPT/HCPCS: 76830; 76856 ==

== ENCOUNTER 2024-11-20 09:48 | Outpatient (CLI) | payer MEDICARE, SELFPAY ==
--- NOTE | 2024-11-20 09:45 | CTR_ITS ---
PROCEDURE INFORMATION: Exam: CT Abdomen And Pelvis Without Contrast Exam date and time: 11/20/2024 10:01 AM Age: 74 years old Clinical indication: Condition or disease; Hernia; Prior surgery; Surgery date: 6+ months; Surgery type: Bladder, hyst, gb; Additional info: K40.90 - unilateral inguinal hernia, without obstruction . . . TECHNIQUE: Imaging protocol: Computed tomography of the abdomen and pelvis without contrast. Radiation optimization: All CT scans at this facility use at least one of these dose optimization techniques: automated exposure control; mA and/or kV adjustment per patient size (includes targeted exams where dose is matched to clinical indication); or iterative reconstruction. COMPARISON: CT abdomen pelvis w con* [id number] 02/16/2020 11:17 PM RADIATION DOSE METRICS: Total DLP (mGy-cm): 354.08 FINDINGS: Diaphragm: Moderate hiatal hernia. Liver: Normal. No mass. Gallbladder and biliary ducts: Cholecystectomy. Pancreas: Normal. No ductal dilation. Spleen: Normal. No splenomegaly. Adrenal glands: Normal. No mass. Kidneys and ureters: Normal. No hydronephrosis. Stomach and bowel: Diverticulosis without evidence of diverticulitis. Appendix: No evidence of appendicitis. Intraperitoneal space: Prior surgery in the right mid abdomen. Vasculature: Unremarkable. No abdominal aortic aneurysm. Lymph nodes: Unremarkable. No enlarged lymph nodes. Urinary bladder: Unremarkable as visualized. Reproductive: Unremarkable as visualized. Bones/joints: Unremarkable. No acute fracture. Soft tissues: Small inguinal hernias containing only fat. CT/CT abdomen pelvis con [id number] IMPRESSION: No acute subdiaphragmatic pathology.
== END 2024-11-20 09:49 | disposition home or self-care (01) ==
LOC: RAD 09:52
PROVIDERS: PCP Family Medicine; Visit Provider Obstetrics & Gynecology
DX: K40.90 Unilateral inguinal hernia, without obstruction or gangrene, not specified as recurrent (principal); Z90.49 Acquired absence of other specified parts of digestive tract; K57.30 Diverticulosis of large intestine without perforation or abscess without bleeding; Z98.890 Other specified postprocedural states
CPT/HCPCS: 74176

== ENCOUNTER → 2024-11-26 10:08 | Outpatient (BNVA) | payer MEDICARE, SELFPAY | PROVIDERS: PCP Family Medicine; Visit Provider Surgery | DX: K46.9 Unspecified abdominal hernia without obstruction or gangrene (principal) | CPT/HCPCS: 99203 ==

== ENCOUNTER → 2024-12-17 15:21 | Outpatient (BNVA) | payer MEDICARE, SELFPAY | PROVIDERS: PCP Family Medicine; Visit Provider Family Medicine | DX: Z00.00 Encounter for general adult medical examination without abnormal findings (principal) | CPT/HCPCS: 80053; 85025 ==

== ENCOUNTER 2025-01-06 13:19 | Outpatient (CLI) | payer MEDICARE, SELFPAY ==
--- NOTE | 2025-01-06 13:20 | MM_ITS ---
WS: [id number] BILATERAL 3D TOMOSYNTHESIS DIGITAL SCREENING MAMMOGRAPHY WITH CAD CLINICAL INFORMATION: breast cancer screening HISTORY: Screening mammogram. No current complaints. COMPARISON: 2020 TECHNIQUE: Bilateral CC and MLO views. FINDINGS: Scattered fibroglandular densities bilaterally. No suspicious focal mass, asymmetry, calcifications, or architectural distortion. No evidence of malignancy. Incidental punctate calcifications. Vascular calcifications. MM/MM scr tomosynthesis [id number] IMPRESSION: DENSITY: There are scattered areas of fibroglandular density. BI-RADS: 2 - Benign. FOLLOW UP: 1 Year Follow-up Recommend return to annual screening mammography.
--- NOTE | 2025-01-06 14:00 | XR_ITS ---
WS: [id number] SCREENING DEXA SCAN [employer] CLINICAL INFORMATION: osteoprosis screening COMPARISON: None. FINDINGS: The L1-L4 bone mineral density measures 0.936 g/cm2. This corresponds to a T score score of -2.0 and Z score of -0.3. Left femoral neck bone mineral density measures 0.728 g/cm2. This corresponds to a T score of -2.2 and Z score of -0.6. Right femoral neck bone mineral density measures 0.748 g/cm2. This corresponds to a T score -2.1of and Z score of -0.4. Mean femoral neck bone mineral density measures 0.738 g/cm2. This corresponds to a T score of -2.1 and Z score of -0.5. XR/XR DEXA axial skeleton* [id number] IMPRESSION: Osteopenia lumbar spine. Osteopenia femoral necks. Patient's FRAX calculated 10 year probability for major osteoporotic fracture i s 17.4% and osteoporotic hip fracture is 5.7%.
== END 2025-01-06 13:20 | disposition home or self-care (01) ==
PROVIDERS: PCP Family Medicine; Visit Provider Family Medicine
DX: Z12.31 Encounter for screening mammogram for malignant neoplasm of breast (principal); Z78.0 Asymptomatic menopausal state; M85.89 Other specified disorders of bone density and structure, multiple sites; R92.323 Mammographic fibroglandular density, bilateral breasts; R92.1 Mammographic calcification found on diagnostic imaging of breast
CPT/HCPCS: 77063; 77067; 77080

== ENCOUNTER → 2025-01-13 12:19 | Outpatient (BNVA) | payer MEDICARE, SELFPAY | PROVIDERS: PCP Family Medicine; Visit Provider Family Medicine | DX: N32.81 Overactive bladder (principal); R10.2 Pelvic and perineal pain | CPT/HCPCS: 81000; 87086 ==

== ENCOUNTER → 2025-01-29 14:33 | Outpatient (BNVA) | payer MEDICARE, SELFPAY | PROVIDERS: PCP Family Medicine; Visit Provider Family Medicine | DX: I50.9 Heart failure, unspecified (principal); R60.9 Edema, unspecified | CPT/HCPCS: 80053; 83880; 84443 ==

== ENCOUNTER → 2025-04-30 13:50 | Outpatient (BNVA) | payer MEDICARE, SELFPAY | PROVIDERS: PCP Family Medicine; Visit Provider Family Medicine | DX: R60.9 Edema, unspecified (principal); I50.9 Heart failure, unspecified | CPT/HCPCS: 83735; 83880; 85025 ==

== ENCOUNTER 2025-05-05 14:29 | Outpatient (CLI) | payer MEDICARE, SELFPAY ==
--- NOTE | 2025-05-05 14:15 | USCV_ITS ---
Diana Hines Age: 74 Gender: F : 1950 Exam Date: 05/05/2025 14:41 Ordering Phys: Vidya Schulte MD Technologist: Exam Location: [facility] [place] Indication: cp sob BP: 110 / 70 HR: 67 Rhythm: Sinus Technical Quality: Adequate MEASUREMENTS (Male / Female) Normal Values 2D ECHO LVOT Diameter 1.6 cm LV Ejection Fraction MOD 4C 72.8 % LV Ejection Fraction MOD 2C 58.7 % LV Ejection Fraction 2C AL 56.8 % LA Diameter 2.4 cm RA Systolic Volume 4C AL 26.5 ml RA Systolic Volume 4C MOD 25.4 ml LA Sys Volume AL 62.3 cm cubed LA Sys Volume Index AL 37.1 cm cubed/m squared Aorta at Sinotubular Diameter 1.8 cm IVC Diameter 2.1 cm M-MODE LA Ao Ratio MM 1.1 AV Cusp Separation MM 1.7 cm DOPPLER AV Peak Velocity 147.0 cm/s LVOT Peak Velocity 110.0 cm/s AV Area Cont Eq vti 1.9 cm squared AV Area Cont Eq pk 1.6 cm squared MV Peak Velocity 111.0 cm/s MV Area PHT 2.8 cm squared Mitral E to A Ratio 0.9 TV Peak Velocity 198.5 cm/s TR Peak Velocity 202.0 cm/s TR Peak Gradient 16.3 mmHg TV Peak E Velocity 100.0 cm/s PV Peak Velocity 107.0 cm/s FINDINGS Left Ventricle Normal left ventricular size and systolic function, EF 55-60%. No regional wall motion abnormalities. Grade 1 diastolic dysfunction Right Ventricle Normal in size and function Right Atrium Normal in size Left Atrium Mildly dilated Mitral Valve Structurally normal mitral valve. Mild mitral valve regurgitation. Aortic Valve Thickened aortic valve. No aortic valve stenosis. Tricuspid Valve Mild tricuspid valve regurgitation. Insufficient TR jet to calculate RVSP Pulmonic Valve Not well visualized Pericardium Normal Aorta Normal in size IVC Not well visualized CONCLUSIONS LV systolic function is normal with EF of 55-60% Grade 1 diastolic dysfunction Left atrial dilation Mild mitral valve regurgitation. Mild tricuspid valve regurgitation. Tucker St MD (Electronically Signed) Final Date: 11 May 2025 23:08 S
== END 2025-05-05 14:30 | disposition home or self-care (01) ==
LOC: RAD 14:33
PROVIDERS: PCP Family Medicine; Visit Provider Family Medicine
DX: R60.9 Edema, unspecified (principal); I50.30 Unspecified diastolic (congestive) heart failure; I51.7 Cardiomegaly; I34.0 Nonrheumatic mitral (valve) insufficiency; I36.1 Nonrheumatic tricuspid (valve) insufficiency
CPT/HCPCS: 93306

== ENCOUNTER → 2025-05-20 13:55 | Outpatient (BNVA) | payer MEDICARE, SELFPAY | PROVIDERS: PCP Family Medicine; Visit Provider Surgery | DX: K21.9 Gastro-esophageal reflux disease without esophagitis (principal); R13.10 Dysphagia, unspecified | CPT/HCPCS: 99214 ==

== ENCOUNTER 2025-08-06 10:15 | Outpatient (RCR) | payer MEDICARE, SELFPAY | END 2025-08-27 23:59 | disposition home or self-care (01) | LOC: SPT 10:15 | PROVIDERS: PCP Family Medicine; Visit Provider Family Medicine | DX: R10.20 Pelvic and perineal pain unspecified side (principal) | CPT/HCPCS: 97110; 97161; 97530 ==